=== PATIENT | female | born 1985 | race Two or more races ===

== ENCOUNTER 2017-12-02 14:26 | Emergency (ER) | payer MEDICAID, OTHER ==
[~2017-12-02] VITALS: Ht 157.5 cm; Wt 78.9 kg
[2017-12-02 14:31] VITALS: BP 128/84
[2017-12-02] MEDS ORDERED: IPRATROPIUM BROM 0.5 MG/2.5ML INH SOL NEB ONE (17:30)
[2017-12-02] MEDS ORDERED: ALBUTEROL SULF 2.5 MG/0.5ML(0.5%) NEB SOLN NEB ONE (17:30)
[2017-12-02] MEDS ORDERED: cefTRIAXone SOD 1,000 MG VL IM ONE (18:00)
== END 2017-12-02 18:19 | disposition home or self-care (01) ==
LOC: ER 14:26
DX: J40 Bronchitis, not specified as acute or chronic (principal); J45.909 Unspecified asthma, uncomplicated
CPT/HCPCS: 71046; 94640; 96372; 99284; J0696